=== PATIENT | female | born 1935 | race Caucasian/White ===

== ENCOUNTER → 2018-09-14 | Outpatient (CLI) | payer OTHER | LOC: BMCIMAGING 09:27 | PROVIDERS: ATTEND Physician Assistant | DX: M24.811 Other specific joint derangements of right shoulder, not elsewhere classified (principal); M24.152 Other articular cartilage disorders, left hip ==

== ENCOUNTER → 2018-09-25 | Outpatient (CLI) | payer OTHER | LOC: BMCIMAGING 08:43 | PROVIDERS: ATTEND Orthopaedic Surgery | DX: M16.12 Unilateral primary osteoarthritis, left hip (principal) ==

== ENCOUNTER 2018-12-13 05:46 | Inpatient (IN) | payer OTHER ==
--- NOTE | 2018-12-07 10:29 | GHP ---
DATE OF ADMISSION: 12/13/2018 PROBLEM: Left hip severe degenerative arthritis. HISTORY OF PRESENT ILLNESS: The patient is an 83-year-old woman admitted for a left total hip arthro plasty. Her symptoms started in the spring. She has had a cortisone injection in her left h ip, which did not help. Her hip is painful walking. It has been gradually getting worse. She is us ing ibuprofen and Tylenol. She has failed nonsurgical treatment. She is admitted for a total hip ar throplasty. PAST MEDICAL HISTORY: She is treated for elevated cholesterol and hypothyroidism. No history of hea rt disease, stents, DVT, hepatitis, or MRSA staph infections, sleep apnea, or hereditary bleeding dis orders. CURRENT MEDICATIONS: Atorvastatin 80 mg per day, Synthroid 50 mcg per day. ALLERGIES: Drug allergy: None. Metal allergy: None. Latex allergy: None. SOCIAL HISTORY: The patient is a . She does not smoke cigarettes, and rarely drinks alcohol. Her son lives in her basement. He will be there to assist her when she goes home from the hospital. PHYSICAL EXAMINATION: VITAL SIGNS: Height 5 feet, weight 118 pounds, BMI 23. GENERAL: She is an a lert, healthy-appearing elderly woman. EYES: She has had bilateral cataract surgery. The pupils ar e round and reactive. MOUTH: Good oral hygiene. No loose teeth. CHEST: Clear. HEART: Regular r hythm, no murmurs. EXTREMITIES: Pertinent findings are limited to her left hip. She has full hip e xtension and 100 degrees of flexion. As she flexes the hip, she develops a 20-degree external rotati on contracture, and has no further internal or external rotation. Abduction 20 degrees. IMAGING: Her films show very severe degenerative arthritis of the left hip. She is bone on bone. S he has moderate cartilage space narrowing in the right hip. She has significant lumbar scoliosis and degenerative disk disease. IMPRESSION ON ADMISSION: 1. Left hip severe degenerative arthritis. She is prepared for a left total hip arthroplasty. 2. Treatment for elevated cholesterol. 3. Treatment for hypothyroidism. 4. Severe scoliosis and degenerative disk disease. PLAN: She will undergo a left total hip arthroplasty. The surgery has been described to her, includ ing the risks, complications, expectations, and recovery time. I have talked to her about the risk o f dislocation, leg length inequality, infection, and sciatic nerve injury. She is probably at a kristin le greater risk of instability due to her scoliosis and degenerative lumbar disk disease. Her son lives in her basement, and will be there to help her when she goes home from the hospital. /[id number]/MODL
[~2018-12-13 05:46] MED LIST: ACETAMINOPHEN 325 MG TAB PO ONE; DEXAMETHASONE 4 MG/ML VIAL IVP ONE; FAMOTIDINE 20 MG TAB PO ONE; GABAPENTIN 300 MG CAP PO ONE; LR 1,000 ML IV ONE; ONDANSETRON 4 MG/2 ML VIAL IVP ONE; ceFAZolin 2 GM/DEXTROSE 100 ML IV ONE
[2018-12-13] MEDS: LIDOCAINE 1% 2 ML INJ ID PRN ×2 (06:22→06:23)
[2018-12-13] MEDS ORDERED: TRANEXAMIC ACID 3,000 MG/50 ML BAG IRR ONE (06:46)
[2018-12-13] MEDS ORDERED: ceFAZolin 1 GM/5 ML SYR ONE (06:47)
--- NOTE | 2018-12-13 06:55 | PDANEPAE ---
ANE Past Medical History - Cardiovascular History Hx Hypertension: No Hx Arrhythmias: No Hx Chest Pain: No Hx Coronary Artery / Peripheral Vascular Disease: No Hx CHF / Valvular Disease: No Hx Palpitations: No Cardiovascular History Comment: high chol - Pulmonary History Hx COPD: No Hx Asthma/Reactive Airway Disease: No Hx Recent Upper Respiratory Infection: No Hx Oxygen in Use at Home: No Hx Sleep Apnea: No Sleep Apnea Screening Result - Last Documented: Negative - Neurologic History Hx Cerebrovascular Accident: No Hx Seizures: No Hx Dementia: No - Endocrine History Hx Diabetes: No Endocrine History Comment: hypothyroidism - Renal History Hx Renal Disorders: No - Liver History Hx Hepatic Disorders: No - Neurological & Psychiatric Hx Hx Neurological and Psychiatric Disorders: No - Cancer History Hx Cancer: No - Congenital Disorder History Hx Congenital Disorders: No - GI History Hx Gastrointestinal Disorders: No - Other Health History Other Health History: none - Chronic Pain History Chronic Pain: Yes (left hip) - Surgical History Prior Surgeries: right rtc repair 2000. cataracts bilaterally ANE Review of Systems Review of Systems: - Exercise capacity METS (RN): 4 METS ANE Patient History - Allergies Allergies/Adverse Reactions: No Known Allergies Allergy (Verified 12/07/18 16:35) - Home Medications Home Medications: Atorvastatin Calcium [Lipitor 40 mg (*)] 80 mg PO DAILY18 11/30/18 [Last Taken 12/12/18 18:00] Ibuprofen [Motrin (*)] 200 mg PO DAILY PRN 11/30/18 [Last Taken 12/06/18] Levothyroxine [Synthroid 50 mcg (*)] 50 mcg PO DAILY06 11/30/18 [Last Taken 04:00] - Smoking Hx Smoking Status: Never smoked - Family Anes Hx Family Hx Anesthesia Complications: none ANE Labs/Vital Signs - Vital Signs Height: 157.48 cm Weight: 53.524 kg ANE Physical Exam - ASA Status ASA Status: II ANE Anesthesia Plan Anesthesia Plan: spinal
--- NOTE | 2018-12-13 06:56 | PDHPUP ---
History & Physical Update H&P update statement: This history and physical update is based on an assessment of the patient which was completed after admission or registration (within 24 hours), but prior to the surgery/procedure. H&P update: H&P reviewed & patient examined
[2018-12-13] MEDS ORDERED: PROPOFOL/EMULSION 500 MG/50 ML BOTTLE IV ONE (06:58)
[2018-12-13] MEDS ORDERED: fentaNYL 100 MCG/2 ML INJ ONE (06:58)
[2018-12-13] MEDS ORDERED: MIDAZOLAM 2 MG/2 ML VIAL ONE (06:58)
[2018-12-13] MEDS ORDERED: POVIDONE-IODINE 20 ML in SODIUM CL IRRIG SOLUTION 500 ML IRR ONE (07:00)
[2018-12-13] MEDS ORDERED: TRANEXAMIC ACID 1,000 MG in NS 100 ML IV ONE (07:15)
[2018-12-13] MEDS ORDERED: TRANEXAMIC ACID 3,000 MG in NS (SYRINGE) 50 ML IRR ONE (07:15)
[2018-12-13] MEDS ORDERED: ROPIVACAINE 0.2% 80 MG, EPINEPHrine 0.2 MG, KETOROLAC TROMETHAMINE 30 MG in SYRINGE 0 ML IU ONE (07:15)
--- NOTE | 2018-12-13 08:35 | POSTOPPROG ---
Post Op Note Date of Operation: 12/13/18 Surgeon: Amish De Jesus Administrative Services Coordinator: Karthik Anesthesiologist: Dr. Esteban Snow Post-op Diagnosis: Left hip severe degenerative arthritis Procedure: Left total hip arthroplasty Inf/Abcess present in the surg proc area at time of surgery?: No EBL: [id number]
[2018-12-13] MEDS ORDERED: PHENYLEPHRINE HCL 100 MCG/ML SYR ONE (08:40)
[2018-12-13] MEDS ORDERED: ONDANSETRON 4 MG/2 ML VIAL ONE (08:40)
[2018-12-13] MEDS ORDERED: ONDANSETRON 4 MG/2 ML VIAL IVP PRN (08:45)
[2018-12-13] MEDS ORDERED: LACTULOSE 20 GM/30 ML UDCUP PO PRN (08:45)
[2018-12-13] MEDS ORDERED: oxyCODONE IR 5 MG TAB PO PRN (08:45)
[2018-12-13] MEDS ORDERED: MAGNESIUM HYDROXIDE 30 ML UDCUP PO PRN (08:45)
[2018-12-13] MEDS ORDERED: CYCLOBENZAPRINE 10 MG TAB PO PRN (08:45)
[2018-12-13] MEDS ORDERED: METOCLOPRAMIDE 10 MG/2 ML VIAL IVP PRN ×2 (08:45→08:49)
[2018-12-13] MEDS ORDERED: NS 500 ML IV PRN (08:45)
[2018-12-13] MEDS ORDERED: ONDANSETRON DISINTEGRATING 4 MG TAB PO PRN (08:45)
[2018-12-13] MEDS ORDERED: PROMETHAZINE HCL 25 MG/ML INJ IVP PRN (08:45)
[2018-12-13] MEDS ORDERED: POLYETHYLENE GLYCOL 3350 17 GM PKT PO PRN (08:45)
[2018-12-13] MEDS ORDERED: DIPHENOXYLATE/ATROPINE LOMOTIL 1 TAB PO PRN (08:45)
[2018-12-13] MEDS ORDERED: PROMETHAZINE HCL 25 MG SUPPR PR PRN (08:45)
[2018-12-13] MEDS ORDERED: BISACODYL 10 MG SUPP PR PRN (08:45)
[2018-12-13] MEDS ORDERED: TEMAZEPAM 15 MG CAP PO PRN (08:45)
[2018-12-13] MEDS ORDERED: traMADol 50 MG TAB PO PRN (08:45)
[2018-12-13] MEDS ORDERED: diphenhydrAMINE 25 MG CAP PO PRN (08:45)
[2018-12-13] MEDS ORDERED: PHENYLEPHRINE HCL 100 MCG/ML SYR IVP PRN (08:49)
[2018-12-13] MEDS ORDERED: fentaNYL 100 MCG/2 ML INJ IVP PRN (08:49)
[2018-12-13] MEDS ORDERED: LR 500 ML IV PRN (08:49)
[2018-12-13] MEDS ORDERED: HYDROCODONE/APAP 5/325 TAB PO PRN (08:49)
[2018-12-13] MEDS ORDERED: NALOXONE HCL 0.4 MG/ML INJ IVP PRN (08:49)
--- NOTE | 2018-12-13 08:50 | POSTANESTH ---
Post Anesthetic Evaluation Cardiovascular Status: Normal, Stable Respiratory Status: Normal, Stable Level of Consciousness/Mental Status: Can Participate in Eval Pain Control: Adequate, Prn Tx Ordered Nausea/Vomiting Control: Adequate, Prn Tx Ordered Complications Possibly Related to Anesthesia: None Noted
[2018-12-13] MEDS ORDERED: BUPIVACAINE/DEXTROSE 7.5MG/ML 2 ML SPINAL AMP SP ONE (09:10)
--- NOTE | 2018-12-13 09:25 | GOP ---
[f rep st] OPERATIVE REPORT DATE OF OPERATION: 12/13/2018 SURGEON: Amish De Jesus MD MAINTAINER PLANT: Eduard Go and Javier Foley. ANESTHESIA: Combination of Marcaine, spinal, and IV sedation. ANESTHESIOLOGIST: Esteban Snow MD. PREOPERATIVE DIAGNOSIS: Left hip severe degenerative arthritis. POSTOPERATIVE DIAGNOSIS: Left hip severe degenerative arthritis. PROCEDURE PERFORMED: A left total hip arthroplasty, ceramic femoral head on highly cross-linked poly ethylene cup liner. FINDINGS: DESCRIPTION OF PROCEDURE: The patient was given 2 g of IV Ancef preoperatively within 60 minutes of surgery. She also received IV tranexamic acid, 1000 mg. She was placed on the operating room table and given spinal anesthesia with Marcaine by Dr. Snow. She was then placed supine and given IV sed ation. A Mccrary catheter was not used. She wore a TRENA stocking and SCD on the nonoperative leg. She was rolled to the right lateral decubitus position. The position was secured with the pegboard tabl e attachment. An axillary roll was used, and all pressure points were padded. I was careful to lock her pelvis in a vertical position. Her perineum was isolated with plastic adhesive drapes. The lef t hip and left lower extremity were prepped with ChloraPrep. They were draped free using sterile she ets, stockinette, and Ioban plastic adhesive drapes. The World [employer] time-out was perf ormed to verify the correct surgical side and site and the correct patient identity. The Lennie delfino e-out was also performed. I made a 5-inch straight oblique posterolateral hip skin incision. The subcutaneous tissues were sha rply divided, and hemostasis was obtained using electrocautery. Her fascia thong was identified and s plit along the axis of its fibers. I then curved posteriorly and proximally, and split the fascia of gluteus judi and bluntly split the muscle fibers in line with their orientation. The Charnley se lf-retaining retractor was inserted. Her sciatic nerve was located, partially exposed, and protected throughout the procedure. The external rotators and the posterior hip capsule were divided as separ ate layers at the base of the femoral neck, tagged, and reflected posteriorly. A smooth 8-inch Villagomez knight pin was inserted vertically into the ilium, superior to the acetabulum. An 8-inch drill bit was inserted vertically into the greater trochanter and parallel to the first pin. The distance between the 2 was measured for leg length reference. Her femoral head was dislocated posteriorly. Severe d egenerative changes were present on the femoral head. The femoral neck was osteotomized at the appro priate level and inclination. I was careful to preserve all the posterior capsule and most of the anterior capsule. The remnant of her damaged labrum was excised. I prepared the femur first. This allowed me to infusion nurse the amount of natural femoral neck anteversion. This, in turn, allowed me to later determine the correct amount of cup anteversion. She had approx imately 15 degrees of natural femoral neck anteversion. The canal was opened laterally with a box ch chema. I hand broached sequentially up to size 5. The size 5 Accolade II broach was used as a trial stem. I was careful to lateralize adequately. Appropriate retractors were inserted to expose the acetabulum. The acetabulum was reamed sequentiall y to 52 mm. I selected the 52 mm Iker Tritanium Trident II cluster hole hemispherical shell. Thi s was tapped securely into place in the proper degree of inclination anteversion. I used the transve rse acetabular ligament and other acetabular bony landmarks to help me properly orient the cup. The cup fixation was very secure. I performed a series of trial reductions to determine length and stability. I obtained an intraopera tive cross-table AP pelvis x-ray. I concluded that the 0 neck length with a 36 mm head component gav e me the proper combination of good anterior and posterior stability and appropriate length. I recog nized that I was lengthening her a few millimeters, however, I felt it was important for the addition al stability. The 0 degree Disputanta X3 highly cross-linked polyethylene liner was inserted and tapped securely into place. The Iker Accolade II stem in a size 5 with high offset was inserted press-fit and was very tight. I did 1 final trial reduction and confirmed that the 0 neck length with a 36 mm head was the proper combination. The Disputanta Biolox Delta ceramic head with an outside diameter of 36 mm and a n andrew length of 0 mm was tapped securely onto the clean trunnion. The acetabulum was irrigated and adan aned, and the hip was reduced 1 final time. She had excellent anterior and posterior stability and a few millimeters of lengthening. 40 mL of the joint anesthetic cocktail were injected into the capsule, the deep musculature, and the subcutaneous tissues around the skin edges. The joint was thoroughly irrigated 1 final time with a d ilute Betadine solution. Her sciatic nerve was reinspected and looked unharmed. 50 mL tranexamic ac id were irrigated into the wound and left in place. The external rotators and the posterior hip caps ule were repaired in separate layers with #2 FiberWire sutures through drill holes in the greater tro chanter. Her fascia thong was closed first with a couple of interrupted [id number] #2 FiberWire sutures followed by a running #2 barbed Ethicon Stratafix PDO suture. Subcutaneous tissues were clos ed in layers with interrupted 2-0 Monocryl sutures followed by a running 0 barbed Ethicon Stratafix M onoderm suture. The skin was closed with a running 3-0 barbed Ethicon Stratafix Monoderm subcuticula r suture. The skin edges were reapproximated and sealed with Dermabond glue. The wound was covered with a large Mepilex waterproof dressing. The sterile Mepilex sacral dressing was applied. A long-leg TRENA stocking and SCD were applied to her left lower extremity. She wore a stocking and SC D on the opposite leg during the procedure. An abduction pillow was placed between her knees. She w as awakened from anesthesia and rolled to the supine [facility] She was [facility] in satisfactory condition. There were no recognized intraoperative complications. The estimated blood loss was 300 mL or less. The sponge and needle count were correct on 2 occasions . I used a Iker Trident II Tritanium hemispherical cluster hole acetabular shell with an outside octaviano meter of 52 mm. The liner was a Disputanta X3 0 degree highly cross-linked liner with an inside diamete r of 36 mm. The femoral component was a high offset Accolade II stem in a size 5 and press-fit. The femoral head was a Iker Biolox Delta ceramic head with a 0 neck length and a 36 mm outside diamet er. Eduard Go and Javier Foley acted as surgical assistants. Their assistance was a medical necess ity for safe completion of the procedure. /[id number]/MODL
[2018-12-13] MEDS: ACETAMINOPHEN 325 MG TAB PO SCH ×2 (10:07→17:51)
[2018-12-13] MEDS: KETOROLAC 15 MG/1 ML SDV IVP SCH ×2 (10:07→17:50)
[2018-12-13] MEDS: LR 1,000 ML IV SCH ×2 (10:08→21:31)
[2018-12-13] MEDS: SENNOSIDES/DOCUSATE SODIUM TAB PO SCH ×2 (10:26→21:26)
--- NOTE | 2018-12-13 11:45 | PDMN ---
Medical Necessity Medical necessity: Pt meets IP criteria as of 12/13/2018 per and [facility] [place] Medicare IP only procedure.
[2018-12-13] MEDS: ceFAZolin 2 GM/DEXTROSE 100 ML IV SCH ×2 (14:47→21:26)
[2018-12-13] MEDS ORDERED: ATORVASTATIN CALCIUM 40 MG TAB PO SCH (18:00)
[2018-12-13] MEDS ORDERED: ASPIRIN 325 MG TAB PO SCH (21:00)
[2018-12-13] MEDS: FAMOTIDINE 20 MG TAB PO SCH (21:26)
[2018-12-14] MEDS: ACETAMINOPHEN 325 MG TAB PO SCH ×2 (00:41→06:16)
[2018-12-14] MEDS: KETOROLAC 15 MG/1 ML SDV IVP SCH ×2 (00:42→06:15)
[2018-12-14] MEDS ORDERED: LEVOTHYROXINE 50 MCG TAB PO SCH (06:00)
--- NOTE | 2018-12-14 07:34 | SOAPPROG ---
SOAP Progress Note Assessment/Plan: Assessment: Afebrile. Awake and alert. Very little pain. She has been up and walking. Sciatic nerve intact. Postop films look excellent. H&H are good. Plan: Physical therapy today. Discharge later today. 12/14/18 07:33 Objective: Vital Signs Temp Pulse Resp BP Pulse Ox 36.9 C 64 15 131/70 H 95 12/14/18 04:00 12/14/18 04:00 12/14/18 04:00 12/14/18 04:00 12/14/18 04:00 Laboratory Results 12/14/18 05:25 12/13/18 12/14/18 12/15/18 05:59 05:59 05:59 Intake Total 2631 Output Total 0 Balance 581 ICD10 Worksheet Patient Problems: Problems Problem Status Onset Osteoarthritis of left hip Acute
[2018-12-14 07:42] VITALS: BP 154/75
--- NOTE | 2018-12-14 07:52 | GDS ---
[f rep st] DISCHARGE SUMMARY ADMISSION DIAGNOSIS: Left hip arthritis. DISCHARGE DIAGNOSIS: Left hip arthritis. OPERATION PERFORMED: December 13, 2018, left total hip arthroplasty, ceramic femoral head on highly c ross-linked polyethylene cup liner. POSTOPERATIVE COMPLICATIONS: None. CONDITION ON DISCHARGE: Improved. DESCRIPTION OF HOSPITAL COURSE: The patient was admitted to the hospital on the morning of surgery. Her admission CBC was normal. The same day, under a combination of Marcaine, spinal and intravenous sedation, she underwent a left total hip arthroplasty. Postoperatively, she was treated with multim odal DVT prophylaxis, including aspirin. On the first postoperative day, her hemoglobin and hematocr it were 12.5 and 37.3. She was seen by Physical Therapy and made excellent progress with ambulation and stairs. By the time of discharge, she was afebrile, and her wound was clean and dry, and she was independent walking with a walker. DISPOSITION: Patient is discharged to her home. Her son lives with her and will be assisting her. She will go to outpatient physical therapy. She may progress to full weightbearing on the left as to lerated. Continue TRENA stockings for 1 week. Continue aspirin 325 mg p.o. daily for 21 days. I will see her back in the office on January 04, 2019. She has prescriptions for oxycodone, tramadol and Celebrex for pain control. Use an abduction pillow in bed for 3 weeks. TRENA stockings for 1 week. I f there are any problems, she is to call me at the office. /[id number]/MODL
[2018-12-14] MEDS ORDERED: FERROUS SULFATE 325 MG TAB PO SCH (08:00)
[2018-12-14] MEDS ORDERED: ENOXAPARIN 40 MG/0.4 ML SYR SC SCH (09:00)
[2018-12-14] MEDS: SENNOSIDES/DOCUSATE SODIUM TAB PO SCH (09:11)
[2018-12-14] MEDS: FAMOTIDINE 20 MG TAB PO SCH (09:12)
--- NOTE | 2018-12-14 14:06 | ASMTLACE ---
LACE Length of stay for Answers: 2 days current admission Acuity / Level of Answers: Yes Care: Did the patient have an inpatient admission? Comorbidities - select Answers: Opioid dependence all that apply / Chronic pain Other Notes: Hypothyroid # of Emergency department Answers: 0 visits in the last 6 months Score: 10 Date Signed: 12/14/2018 02:05 PM Electronically Signed By:YAA Mosqueda
--- NOTE | 2018-12-14 14:08 | ASMTCMCOM ---
CM Note CM Note Notes: Pt had planned OA of hip. Pt resides with adult son. MD rec outpatient PT, PT rec HHC. Spoke with pt who reports she has no concerns going home without HHC, she will plan to go to outpatient per MD rec. Pt son can help with her dog which she sees as the biggest challenge going home. Pt declines Meals on Wheels and reports she has access to food. Pt family to transport home. No CM d/c needs identified. Date Signed: 12/14/2018 02:07 PM Electronically Signed By:YAA Mosqueda
== END 2018-12-14 12:04 | disposition home or self-care (01) | DRG 470 ==
LOC: F3N 05:46 → OBSVTOIN 08:46 → F3N 09:54
PROVIDERS: ADMIT Orthopaedic Surgery; ATTEND Orthopaedic Surgery
PROC: 0SRB04A Replacement of Left Hip Joint with Ceramic on Polyethylene Synthetic Substitute, Uncemented, Open Approach (ICD-10-PCS; principal; 2018-12-13 07:15)
DX: M16.12 Unilateral primary osteoarthritis, left hip (principal); E78.00 Pure hypercholesterolemia, unspecified; E03.9 Hypothyroidism, unspecified; M41.86 Other forms of scoliosis, lumbar region; M51.36 Other intervertebral disc degeneration, lumbar region
CPT/HCPCS: 97110-GP; 97116-GP; 97161-GP; 97165-GO; J0171; J0690; J1100; J1650; J1885; J2250; J2370; J2405; J2704; J2795; J3010